=== PATIENT | female | born 1985 | race Hispanic/Latino ===

== ENCOUNTER 2017-04-04 20:02 | Inpatient (IN) | payer OTHER ==
[2017-04-04 20:15] VITALS: BMI 26.0
--- NOTE | 2017-04-04 20:55 | OBHP ---
Datetime: 04/04/2017 20:26 IP Adm Impression: Term, intrauterine IP Admit Plan: Admit to unit; Initiate labor induction protocol Admit Comment, IP Provider: 31 yo edc 04/11/17 by lmp _ 6wk us presents for induciton 2ndary t o oligo noted on us today. Per pt jeana is 4. She denies srom, bleeding or decreased fm. Ob hx otherw ise unremarkable. pmhx: denies pshx: d_c; Myringostomy; Tonsillatory nkda medic: pnv shx: denies etoh, drugs or tobacco I: 39wks [place] P: admit for cervidel process of induct d/w pt. Pelvic Type - PN: Adequate Extremities - PN: Normal Abdomen - PN: Normal Lungs - PN: Normal Heart - PN: Normal Neurologic - PN: Normal HEENT - PN: Normal General - PN: Normal Presentation-Admit: Vertex Membranes, Provider: Intact Vital Signs Provider: Reviewed; Within Normal Limits IP Chief Complaint: Scheduled induction of labor NICHD Variability Prov Fetus A: Moderate 6-25bpm FHR Category Provider Fetus A: Category I Dilatation, Provider: 2 Effacement, Provider: 40 Station, Provider: -1 Genitourinary Exam: Normal DTRs - PN: Normal
[2017-04-04 21:03] LABS: BASO # 0.2 K/uL (0.0-0.2); BASO % 1.2 % (0.0-2.0); EOS # 0.3 K/uL (0.0-0.7); EOS % 1.9 % (0.0-4.0); HEMOGLOBIN 11.9 g/dL (12.0-16.0); LYMPH # 2.8 K/uL (1.0-4.3); LYMPH % 18.9 % (20.0-40.0); MEAN CELL VOLUME 95.5 fl (81.0-99.0); MEAN CORPUSCULAR HGB CONC 34.6 g/dL (33.0-37.0); MEAN PLATELET VOLUME 9.4 fl (7.2-11.7); MONO # 0.9 K/uL (0.0-0.8); MONO % 6.1 % (0.0-10.0); NEUT # 10.5 K/uL (1.8-7.0); NEUT % 71.9 % (50.0-75.0); NRBC % 0.1 % (0.0-0.0); RBC 3.6 Mil/uL (3.80-5.20); RED CELL DISTRIBUTION WIDTH 13.6 % (11.5-14.5); WHITE BLOOD COUNT 14.6 K/uL (4.8-10.8)
[2017-04-04 21:29] VITALS: BP 115/68; PULSE 101; RESP 16; TEMP 98.3; O2SAT 100
[2017-04-04] MEDS: Lactated Ringer's 1,000 ML IV SCH (23:45)
[2017-04-05] MEDS ORDERED: Nalbuphine 20 mg/ml Inj (1 ml) IVP PRN (01:31)
[2017-04-05] MEDS: Lactated Ringer's 1,000 ML IV SCH ×4 (01:40→14:41)
[2017-04-05] MEDS ORDERED: Fentanyl/Bupivacaine HCl 250 ML EPI ONE (11:01)
[2017-04-05] MEDS ORDERED: Oxytocin 30 units/LR 500ML 30 U/500 ML BAG IV ONE (14:05)
[2017-04-05] MEDS ORDERED: Lidocaine 1% Inj (20ml) ONE (14:05)
--- NOTE | 2017-04-05 16:29 | OBDS ---
MATERNAL INFORMATION Provider Comments: Delivered a live baby girl at 3:56 PM the baby was bulb suctioned on the perineum and transferred to maternal chest. The cord was clamped cut and 3 vessels noted, cord blood was obta ined and sent to the lab. The placenta was delivered at 4:05 PM intact. The estimated blood loss was 200 mL there was a first-degree laceration which was repaired with 2-0 Rapide. Mother tolerated the p rocedure well and the baby went to the well baby nursery with Apgars of 9 and 9 weight 3310 g LABOR SUMMARY EDC: 04/11/2017 00:00 No. Babies in Womb: 1 LABOR INFORMATION Cervical Ripening Agents: Cervidil Group B Beta Strep: Negative MEMBRANES Membranes Rupture Method: Artificial Rupture of Membranes: 04/05/2017 11:00 Amniotic Fluid Color: Clear Amniotic Fluid Amount: Small Amniotic Fluid Odor: Normal VAGINAL DELIVERY Episiotomy: None Laceration Extension: Second Degree Laceration Type: Vaginal Laceration Repair: Yes Sponge Count Correct: Yes Sharps Count Correct: Yes PRESENTATION/POSITION BABY A Presentation: Cephalic
[2017-04-05] MEDS ORDERED: Benzocaine/Menthol SPRAY TOP PRN (16:39)
[2017-04-05] MEDS ORDERED: Oxycodone/Acetaminophen 5/325 mg Tab PO PRN ×2 (16:39)
[2017-04-06 06:58] LABS: MEAN CELL VOLUME 95.9 fl (81.0-99.0); MEAN CORPUSCULAR HGB CONC 34.4 g/dL (33.0-37.0); RBC 3.03 Mil/uL (3.80-5.20); RED CELL DISTRIBUTION WIDTH 13.4 % (11.5-14.5); WHITE BLOOD COUNT 18.3 K/uL (4.8-10.8)
--- NOTE | 2017-04-06 08:49 | OBPPN ---
Datetime: 04/06/2017 08:45 PP Pain Prov: Within normal limits PP Nausea Prov: Denies PP Abdomen/Uterus Prov: Normal PP Lochia Prov: Normal PP Progress Prov: Normal PP Impression Prov: Normal progression PP Plan Prov: Continue present management PP Progress Note Prov: PPD 1 s/p , doing well, Continue current management
--- NOTE | 2017-04-07 07:01 | OBPPN ---
Datetime: 04/07/2017 06:57 PP Pain Prov: Within normal limits PP Nausea Prov: Denies PP Abdomen/Uterus Prov: Normal PP Lochia Prov: Normal PP Extremities Prov: Normal PP Progress Prov: Normal PP Impression Prov: Normal progression PP Plan Prov: Discharge PP Progress Note Prov: PPD 2s/p , doing well, breast feeding Rx's motrin and ferrous sulfate given Discharge home Vital Signs Provider PP: Reviewed
--- NOTE | 2017-04-07 07:02 | OBDCSUM ---
Datetime: 04/07/2017 07:00 Discharged to, Provider: Home Follow up at, Provider: [facility] Disch Instr Activity: Normal activity; May Shower Disch Instr Diet: Regular Discharge Instructions, Provider: Routine instructions given Discharge Diagnosis, Provider: Term Delivered Discharge Time: 04/07/2017 07:00 Follow up in weeks, Provider: 6 weeks Contraception discussed, Prov: No Disch Activity Restrictions: No exercising; No lifting; No sexual activity; Nothing in vagina - Inte rcourse, tampons, douche
--- NOTE | 2017-04-20 20:27 | OBADHP ---
Datetime: 04/04/2017 20:26 Admit Comment, IP Provider: 31 yo edc 04/11/17 by lmp _ 6wk us presents for induciton 2ndary t o oligo noted on us today. Per pt jeana is 4. She denies srom, bleeding or decreased fm. Ob hx otherw ise unremarkable. pmhx: denies pshx: d_c; Myringostomy; Tonsillatory nkda medic: pnv shx: denies etoh, drugs or tobacco I: 39wks [place] P: admit for cervidel process of induct d/w pt. Pelvic Type - PN: Adequate Extremities - PN: Normal Abdomen - PN: Normal Lungs - PN: Normal Heart - PN: Normal Neurologic - PN: Normal HEENT - PN: Normal General - PN: Normal Presentation-Admit: Vertex Membranes, Provider: Intact Vital Signs Provider: Reviewed; Within Normal Limits IP Chief Complaint: Scheduled induction of labor NICHD Variability Prov Fetus A: Moderate 6-25bpm FHR Category Provider Fetus A: Category I Dilatation, Provider: 2 Effacement, Provider: 40 Station, Provider: -1 Genitourinary Exam: Normal DTRs - PN: Normal IP Adm Impression: Term, intrauterine IP Admit Plan: Admit to unit; Initiate labor induction protocol
== END 2017-04-07 13:15 | disposition home or self-care (01) | DRG 775 ==
LOC: H.EROB2 20:02 → H.L&D 20:32 → H.OB/GYN 04-05 21:21
PROVIDERS: ADMIT Obstetrics & Gynecology; ATTEND Obstetrics & Gynecology
PROC: 4A1HXCZ Monitoring of Products of Conception, Cardiac Rate, External Approach (ICD-10-PCS; 2017-04-04)
PROC: 10E0XZZ Delivery of Products of Conception, External Approach (ICD-10-PCS; principal; 2017-04-05)
PROC: 0KQM0ZZ Repair Perineum Muscle, Open Approach (ICD-10-PCS; 2017-04-05)
DX: O41.03X0 Oligohydramnios, third trimester, not applicable or unspecified (principal); O70.1 Second degree perineal laceration during delivery; Z37.0 Single live birth; Z3A.39 39 weeks gestation of pregnancy

== ENCOUNTER 2019-02-22 08:13 | Emergency (ER) | payer OTHER ==
[2019-02-22 08:17] VITALS: RESP 18; O2SAT 100
--- NOTE | 2019-02-22 08:50 | ED PDOC ---
HPI: Female Pain Time Seen by Provider: 02/22/19 08:25 Chief Complaint (Nursing): Female Genitourinary Chief Complaint (Provider): Female Genitourinary History Per: Patient History/Exam Limitations: no limitations Onset/Duration Of Symptoms: Days (4) Additional Complaint(s): 33 y/o female with 1 prior miscarriage presents to the ED complaining of intermittent vaginal spotting since 4 days ago. Patient states she is 9 weeks and had an ultrasound last week showing IUP. Patient denies fever, pain, cramping, dizziness, urinary symptoms, or gasternally intestine. PMD: Dr. Rhodes Past Medical History Reviewed: Historical Data, Nursing Documentation, Vital Signs Vital Signs: Last Vital Signs Temp 97.9 F 02/22/19 08:15 Pulse 128 H 02/22/19 08:15 Resp 18 02/22/19 08:15 BP 133/85 02/22/19 08:15 Pulse Ox 100 02/22/19 08:15 Primary Care Provider: FAMILY PROVIDER,NO - Medical History PMH: No Chronic Diseases - Family History Family History: States: Unknown Family Hx - Home Medications Home Medications: Ambulatory Orders Medication Instructions Recorded Ergocalciferol (Vitamin D2) 1 tab PO DAILY 04/04/17 [Vitamin D] Vit Calc,Iron,Folic 1 tab PO DAILY 04/04/17 [ Vitamins] Ferrous Sulfate 325 mg PO DAILY 60 Days tablet 04/07/17 Ibuprofen [Motrin Tab] 600 mg PO Q6 PRN #60 tab 04/07/17 - Allergies Allergies/Adverse Reactions: Allergies Allergy/AdvReac Type Severity Reaction Status Date / Time No Known Allergies Allergy Verified 02/22/19 08:23 Review of Systems ROS Statement: Except As Marked, All Systems Reviewed And Found Negative Constitutional: Negative for: Fever Gastrointestinal: Negative for: Nausea, Vomiting, Abdominal Pain, Diarrhea Genitourinary Female: Positive for: Other (Vaginal spotting.). Negative for: Dysuria, Hematuria Physical Exam - Reviewed Nursing Documentation Reviewed: Yes Vital Signs Reviewed: Yes - Physical Exam Skin: Positive for: Normal Color, Warm, Dry Cardiovascular/Chest: Positive for: Regular Rate, Rhythm. Negative for: Tachycardia Respiratory: Positive for: Normal Breath Sounds. Negative for: Respiratory Distress Gastrointestinal/Abdominal: Positive for: Normal Exam, Soft. Negative for: Tenderness Neurological/Psych: Positive for: Awake, Alert, Oriented (x3). Negative for: Motor/Sensory Deficits - Laboratory Results Result Diagrams: 02/22/19 08:55 02/22/19 08:55 - ECG O2 Sat by Pulse Oximetry: 100 Medical Decision Making Medical Decision Making: Time:827 Impression: Plan: -Beta HCG -CMP -Urinalysis -Ultrasound Rh+ prior visit Labs reviewed normal Hgb US report reviewed from Dr Cotto and results d/w w patient and Dr Swanson, rec pelvic rest and followup with Dr Rhodes in 1-2 weeks. Scribe Attestation: Documented by Elizabeth Tidwell, acting as a scribe for Helio Major III. Provider Scribe Attestation: All medical record entries made by the Scribe were at my direction and personally dictated by me. I have reviewed the chart and agree that the record accurately reflects my personal performance of the history, physical exam, medical decision making, and the department course for this patient. I have also personally directed, reviewed, and agree with the discharge instructions and disposition. Disposition - Clinical Impression Clinical Impression: Threatened , Subchorionic hematoma - Patient ED Disposition Is Patient to be Admitted: No Counseled Patient/Family Regarding: Studies Performed, Diagnosis, Need For Fo llowup, Rx Given - Disposition Referrals: Mony Rhodes MD [Staff Provider] - Disposition: Routine/Home Disposition Time: 10:55 Condition: STABLE Additional Instructions: Pelvic rest, no sex nothing in vagina, no heavy exertion. Followup with Dr Rhodes in 1 week. Return to ER for any worse or new symptoms. Instructions: Threatened Miscarriage (DC), Bleeding With (DC) Forms: [employer] ([employer])
[2019-02-22 09:08] LABS: BASO # 0.1 K/uL (0.0-0.2); BASO % 0.9 % (0.0-2.0); EOS # 0.1 K/uL (0.0-0.7); EOS % 1.1 % (0.0-4.0); HEMOGLOBIN 13.4 g/dL (12.0-16.0); LYMPH % 17.5 % (20.0-40.0); MEAN CELL VOLUME 94.3 fl (81.0-99.0); MEAN CORPUSCULAR HGB CONC 33.9 g/dL (33.0-37.0); MEAN PLATELET VOLUME 9.2 fl (7.2-11.7); MONO # 0.5 K/uL (0.0-0.8); MONO % 4.4 % (0.0-10.0); NEUT # 8.6 K/uL (1.8-7.0); NEUT % 76.1 % (50.0-75.0); RBC 4.19 Mil/uL (3.80-5.20); RED CELL DISTRIBUTION WIDTH 13.1 % (11.5-14.5); WHITE BLOOD COUNT 11.3 K/uL (4.8-10.8)
[2019-02-22 09:14] LABS: ALB/GLOB RATIO 1.4 (1.0-2.1); ALBUMIN 4.5 g/dL (3.5-5.0); ALT/SGPT 20 U/L (9-52); AST/SGOT 19 U/L (14-36); BLOOD UREA NITROGEN 6 mg/dl (7-17); CALCIUM 9.3 mg/dL (8.4-10.2); GFR NON-AFRICAN AMERICAN > 60
[2019-02-22 09:19] LABS: SQUAMOUS EPITHIAL < 1 /hpf (0-5); URINE BILIRUBIN NEGATIVE (NEGATIVE); URINE BLOOD NEGATIVE (NEGATIVE); URINE CLARITY CLEAR (Clear); URINE COLOR STRAW (YELLOW); URINE GLUCOSE (UA) NEG (NEGATIVE); URINE LEUKOCYTE ESTERASE NEG Leu/uL (Negative); URINE PROTEIN NEGATIVE (NEGATIVE); URINE UROBILINOGEN 0.2-1.0 mg/dL (0.2-1.0)
--- NOTE | 2019-02-22 10:52 | US ---
Date of service: 02/22/2019 PROCEDURE: First trimester ultrasound HISTORY: 9 weeks , vaginal spotting COMPARISON: None TECHNIQUE: Standard protocol for this study/examination. FINDINGS: LMP: 12/17/2018 Prior examinations from the current : None TECHNIQUE: Real-time 2D imaging, duplex and color Doppler. FINDINGS: Cardiac activity: Present Rate: 173 BPM Measurements: [place] rump length: 2.40 cm Gestational age based on CRL 9 weeks 1 day Gestational age 10 weeks 2 days based on gestational sac measurement 4.64 cm Gestational age derived from LMP: 9 weeks 4 days JAYCE based on LMP: 09/23/2019 JAYCE based on biometry: 09/22/2019 Gestational concordance noted Yolk sac identified Cervix: No Cervical abnormalities: Negative examination for cervical dilatation or effacement. Closed cervix measuring 3.76 cm Subchorionic hemorrhage: Small midline 0.6 x 1.7 x 1.7 cm UTERUS: 4.3 x 9.2 x 10.6 cm. ADNEXA: Right: 2.4 x 3.4 x 4.4 cm. Corpus luteum cyst 2.5 x 2.7 x 2.8 cm. Normal Doppler arterial waveform documented. Left: Not visible. Fluid in the cul-de-sac: None IMPRESSION: 9 weeks 4 days live intrauterine gestation. Gestational concordance noted. Small subchorionic hemorrhage. Right corpus luteum cyst. Limitations of the current examination: Non visible left adnexa.
[2019-02-22 11:25] VITALS: BP 116/71; PULSE 82; TEMP 99.2
== END 2019-02-22 11:21 | disposition home or self-care (01) ==
LOC: H.ER 08:13
DX: O20.0 Threatened abortion (principal); O71.7 Obstetric hematoma of pelvis; Z3A.09 9 weeks gestation of pregnancy; Z36.9 Encounter for antenatal screening, unspecified